=== PATIENT | male | born 1965 | race Caucasian/White ===

== ENCOUNTER 2017-10-08 19:18 | Emergency (ER) | payer BC ==
[2017-10-08 19:26] VITALS: BP 155/101
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
[2017-10-08] MEDS ORDERED: HYDROmorphone 1 MG/ML Syringe IM ONE (20:04)
== END 2017-10-08 19:40 | disposition left against medical advice (07) ==
LOC: LL.ED 19:18
DX: T21.22XA Burn of second degree of abdominal wall, initial encounter (principal); T23.272A Burn of second degree of left wrist, initial encounter; F17.210 Nicotine dependence, cigarettes, uncomplicated; X58.XXXA Exposure to other specified factors, initial encounter
CPT/HCPCS: 99281

== ENCOUNTER → 2019-06-23 | Outpatient (CLI) | payer OTHER, MEDICARE ==
[~2019-06-23] MED LIST: Gadobenate Dimeglumine 529 MG/ML 20 ML SDV IVPUSH ONE; Gadobenate Dimeglumine 529 MG/ML 20 ML SDV ONE
== END ==
LOC: LL.MRI 14:49
PROVIDERS: ATTEND Family Medicine
DX: G44.89 Other headache syndrome (principal); Q85.01 Neurofibromatosis, type 1; R22.0 Localized swelling, mass and lump, head
CPT/HCPCS: 70543; 70553; A9577